=== PATIENT | male | born 1955 | race Caucasian/White ===

== ENCOUNTER 2017-10-07 07:58 | Day surgery (SDC) | payer MEDICARE ==
[2017-10-04 09:58] VITALS: BMI 23.6
[2017-10-07 08:45] VITALS: TEMP 98
[2017-10-07] MEDS ORDERED: Propofol 10 mg/ml Inj (20 ML) ONE ×2 (09:27→09:42)
[2017-10-07] MEDS ORDERED: Sodium Chloride 0.9% 1,000 ML IV SCH (10:00)
[2017-10-07 11:04] VITALS: BP 153/88; PULSE 51; RESP 18; O2SAT 100
== END 2017-10-07 11:29 | disposition home or self-care (01) ==
LOC: ENDO 07:58
PROVIDERS: ATTEND Internal Medicine Gastroenterology
DX: K22.10 Ulcer of esophagus without bleeding (principal); K21.0 Gastro-esophageal reflux disease with esophagitis; K26.9 Duodenal ulcer, unspecified as acute or chronic, without hemorrhage or perforation; K44.9 Diaphragmatic hernia without obstruction or gangrene; K29.50 Unspecified chronic gastritis without bleeding; B96.81 Helicobacter pylori [H. pylori] as the cause of diseases classified elsewhere; R63.4 Abnormal weight loss; R10.13 Epigastric pain; E78.5 Hyperlipidemia, unspecified; I83.90 Asymptomatic varicose veins of unspecified lower extremity
CPT/HCPCS: 43239; 88305; 88342; J2001; J2704; J7030; J7040

== ENCOUNTER 2018-02-08 17:08 | Emergency (ER) | payer MEDICARE ==
[2018-02-08 18:42] VITALS: RESP 18; TEMP 98
[2018-02-08 18:43] VITALS: BMI 22.9
--- NOTE | 2018-02-08 18:50 | ED PDOC ---
Arrival/HPI - General Time Seen by Provider: 02/08/18 17:15 Historian: Patient - History of Present Illness Narrative History of Present Illness (Text): 02/08/18 18:47 62yo male with pmhx of H. Pylori who present with complaint of left sided lower back pain that radiates to his left lower back x 2weeks. States pain became increasingly worse. Describes pain as sharp/crampy, intermittent. Pain is usually with standing, ambulating and movement. Did not take any medication for the pain. Denies focal weakness, urinary/fecal incontinence, abdominal pain, nausea,vomiting, fever, chills, dizziness, any other complaint. Past Medical History - Provider Review Nursing Documentation Reviewed: Yes - Infectious Disease Hx of Infectious Diseases: None - Tetanus Immunization Tetanus Immunization: Up to Date - Past Medical History Past Medical History: No Previous - Cardiac Hx Pacemaker: No - Pulmonary Hx Respiratory Disorders: No - HEENT Hx HEENT Disorder: (WEARSR RX GLASSES FOR READING) - Endocrine/Metabolic Hx Endocrine Disorders: Yes (DM BORDERLINE) - Hematological/Oncological Hx Blood Transfusions: No Hx Blood Transfusion Reaction: No - Musculoskeletal/Rheumatological Hx Musculoskeletal Disorders: Yes - Gastrointestinal Hx Gastrointestinal Disorders: Yes (HEMORRHOIDS) - Genitourinary/Gynecological Hx Genitourinary Disorders: Yes Hx Prostate Problems: Yes (HYDROCOLE) - Psychiatric Hx Emotional Abuse: No Hx Physical Abuse: No Hx Substance Use: No - Past Surgical History Past Surgical History: Non-Contributing - Anesthesia Hx Anesthesia Reactions: No Hx Malignant Hyperthermia: No - Suicidal Assessment Feels Threatened In Home Enviroment: No Family/Social History - Physician Review Nursing Documentation Reviewed: Yes Family/Social History: Unknown Family HX Smoking Status: Current Some Days Smoker Hx Alcohol Use: Yes (SOCIALLY) Hx Substance Use: No Hx Substance Use Treatment: No Allergies/Home Meds Allergies/Adverse Reactions: Allergies pollen extracts Allergy (Intermediate, Verified 02/08/18 18:43) NOSE DRIP AND PHLEGM IN THROAT Review of Systems - Physician Review All systems were reviewed & negative as marked: Yes - Review of Systems Constitutional: Normal Eyes: Normal ENT: Normal Respiratory: Normal Cardiovascular: Normal Gastrointestinal: Normal Genitourinary Male: Normal Musculoskeletal: Back Pain Skin: Normal Neurological: Normal Endocrine: Normal Hemo/Lymphatic: Normal Psychiatric: Normal Physical Exam Vital Signs Reviewed: Yes Vital Signs Temp Pulse Resp BP Pulse Ox 02/08/18 18:42 98.0 F 54 L 18 140/81 97 Temperature: Afebrile Blood Pressure: Normal Pulse: Regular Respiratory Rate: Normal Appearance: Positive for: Well-Appearing, Non-Toxic, Comfortable Pain Distress: None Mental Status: Positive for: Alert and Oriented X 3 - Systems Exam Head: Present: Atraumatic, Normocephalic Pupils: Present: PERRL Extroacular Muscles: Present: EOMI Conjunctiva: Present: Normal Mouth: Present: Moist Mucous Membranes Neck: Present: Normal Range of Motion Respiratory/Chest: Present: Clear to Auscultation, Good Air Exchange. No: Respiratory Distress, Accessory Muscle Use Cardiovascular: Present: Regular Rate and Rhythm, Normal S1, S2. No: Murmurs Abdomen: No: Tenderness, Distention, Peritoneal Signs Back: Present: Paraspinal Tenderness (Left paraspinous tenderness), Pain with Le g Raise (LEft leg). No: Midline Tenderness Upper Extremity: Present: Normal Inspection. No: Cyanosis, Edema Lower Extremity: Present: Normal Inspection. No: Edema Neurological: Present: GCS=15, CN II-XII Intact, Speech Normal Skin: Present: Warm, Dry, Normal Color. No: Rashes Psychiatric: Present: Alert, Oriented x 3, Normal Insight, Normal Concentration Medical Decision Making ED Course and Treatment: 02/08/18 22:28 Patient presented to ED with complaint of sharp left sided lower back pain that radiates to his leg posteriorly. LS CT Toradol, Flexeril Reassess On reevaluation pt was smiling, notes improvement of his pain. He was ambulatory and neurological intact. CT Lumbar Spine: There is no fracture visualized. The paraspinal soft tissues are unremarkable. There are no lytic or blastic lesions. Straightening of lumbar lordosis is seen, suggesting muscular spasm. There is evidence of multilevel disk disease, demonstrated by osteophytosis ad endplate sclerosis. Evaluation of individual levels reveals the following: At L4-L5 and L5-S1, broad-based disk protrusion in conjunction with hypertrophic facet disease results in moderate to severe bilateral foraminal narrowing. Canal is moderately stenotic. At L3-L4, L2-L3 broad-based disk bulge, results in mild to moderate bilateral foraminal and canal stenosis. At L1-L2, broad-based disk protrusion, results in moderate bilateral foraminal and canal stenosis. IMPRESSION: 1. No fracture or spondylolisthesis. 2. Straightening of lumbar lordosis is seen, suggesting muscular spasm. 3. Multilevel disk disease as above. Electronically signed on Feb 08, 2018 10:24:23 PM EST by: Martin Mendez M.D., SIS Certified By [facility] Trained MRI and CT Specialist UA Negative 02/08/18 23:44 Result was DW the pt. He was DC home with percocet, Naprosyn and baclofen. referred to ortho - RAD Interpretation Radiology Orders: 02/08/18 18:45 LUMBAR SPINE W/O CONTRAST [CT] Stat - Medication Orders Current Medication Orders: Cyclobenzaprine HCl (Flexeril) 10 mg PO STAT STA Stop: 02/08/18 18:46 Ketorolac Tromethamine (Toradol) 60 mg IM STAT STA Stop: 02/08/18 18:46 Disposition/Present on Arrival - Present on Arrival Any Indicators Present on Arrival: No History of DVT/PE: No History of Uncontrolled Diabetes: No Urinary Catheter: No History Surgical Site Infection Following: None - Disposition Have Diagnosis and Disposition been Completed?: Yes Diagnosis: Back pain Disposition: HOME/ ROUTINE Disposition Time: 22:35 Patient Plan: Discharge Patient Problems: Current Active Problems Problem Status Onset Back pain Acute Condition: STABLE Discharge Instructions (ExitCare): Low Back Pain (DC) Additional Instructions: Follow up with orthopedist Return to ED for any new or worsening symptoms Prescriptions: Baclofen [Lioresal] 20 mg PO BID #10 tab Naproxen [Naprosyn] 500 mg PO BID #20 tab oxyCODONE/Acetaminophen [Percocet 5/325 mg Tab] 1 ea PO Q6 #5 tab Referrals: Lauro Handley III, MD [Medical Doctor] - Follow up with primary
[2018-02-08 20:50] LABS: PH,URINE 6.5 (4.7-8.0); URINE BILIRUBIN NEGATIVE (NEGATIVE); URINE BLOOD NEGATIVE (NEGATIVE); URINE GLUCOSE (UA) NEGATIVE (NEGATIVE); URINE LEUKOCYTE ESTERASE NEGATIVE Leu/uL (NEGATIVE); URINE PROTEIN NEGATIVE mg/dL (<30 mg/dL); URINE UROBILINOGEN 0.2 E.U./dL (<1 E.U./dL)
[2018-02-08 20:53] LABS: URINE APPEARANCE CLEAR (CLEAR); URINE COLOR YELLOW (YELLOW)
[2018-02-08 23:48] VITALS: BP 131/89; PULSE 65; O2SAT 100
--- NOTE | 2018-02-09 09:32 | CT ---
Date of service: 02/08/2018 PROCEDURE: CT Lumbar Spine without contrast HISTORY: back pain COMPARISON: None available. TECHNIQUE: Axial computed tomography images were obtained of the lumbar spine without the use of intravenous contrast. Coronal and sagittal reformatted images were created and reviewed. Radiation dose: Total exam DLP = 498.79 mGy-cm. This CT exam was performed using one or more of the following dose reduction techniques: Automated exposure control, adjustment of the mA and/or kV according to patient size, and/or use of iterative reconstruction technique. FINDINGS: VERTEBRAE: Unremarkable. No fracture. Normal alignment. DISCS/SPINAL CANAL/NEURAL FORAMINA: Multilevel degenerative disc disease with multilevel disc bulging from L1-2 through L5-S1 with varying degrees of bilateral foraminal stenosis and central canal stenosis. PARASPINAL SOFT TISSUES: Unremarkable. OTHER FINDINGS: Multilevel facet arthropathy. IMPRESSION: No fracture.
== END 2018-02-08 23:00 | disposition home or self-care (01) ==
LOC: ED 17:08
DX: M54.5 Low back pain (principal)
CPT/HCPCS: 72131; 81003; 96372; 99283; J1885